=== PATIENT | female | born 1990 | race Caucasian/White ===

== ENCOUNTER 2018-05-08 19:52 | Emergency (ER) | payer OTHER ==
[2018-05-08 21:17] LABS: Absolute Lymphocytes (CBC) 2.1 K/uL (0.7-4.9); Absolute Monocytes 0.5 K/uL (0.1-1.3); Absolute Neutrophil 4.3 K/uL (1.8-8.0); Basophils % 0.6 % (0-1.3); Eosinophils % 1.9 % (0-4.4); Hematocrit 38.4 % (36.0-45.0); Lymphocytes % 29.6 % (15.3-44.8); MCH 30.3 pg (27.0-35.0); MCV 89.8 fL (80-100); MPV 8.8 fL (7.6-11.3); Monocytes % 7.4 % (3.3-12.3); RBC Red Blood Cell Count 4.27 M/uL (3.86-4.86)
[2018-05-08 21:36] LABS: Potassium 3.1 mmol/L (3.5-5.1)
--- NOTE | 2018-05-08 21:40 | RAD REPORT ---
EXAM DESCRIPTION: US - TRANSVAG OB - 05/08/2018 9:17 pm CLINICAL HISTORY: with vaginal bleeding COMPARISON: None FINDINGS: The uterus measures 7 x 5 x 6 centimeters. A fluid collection is present within the endome trium measuring 1.2 x 0.3 x 2.7 centimeters. A pole is not seen. Debris is present. The ovaries are normal in size and echotexture. No significant free fluid is noted. IMPRESSION: 1.2 x 0.3 x 2.7 centimeter fluid collection within the endometrium may represent an irre gularly shaped gestational sac associated with an early IUP. The estimated gestational age 6 weeks 0 days BENOIT 01/01/2019. Other considerations include incomplete and even a pseudo gestational sac associated with an ectopic . This all should be correlated clinically and with serial beta HCG levels. A followup endovaginal sono gram in 1 week would be helpful
[2018-05-08 21:46] LABS: Urine Blood 1+ (NEG); Urine Glucose NEGATIVE (NEG); Urine Protein NEGATIVE (NEG); Urine Specific Gravity 1.005 (1.005-1.030)
--- NOTE | 2018-05-08 23:30 | ER ---
Nurse's Notes [facility] Name: Alexandra Rodriguez Age: 27 yrs Sex: Female : 1990 Arrival Date: 05/08/2018 Time: 19:55 Bed 27 Private MD: Diagnosis: Threatened Presentation: 05/08 20:10 Presenting complaint: Patient states: she is 6 weeks and started bleeding with bb abdominal pain today. Transition of care: patient was not received from another setting of care. Onset of symptoms was May 08, 2018. Risk Assessment: Do you want to hurt yourself or someone else? Patient reports no desire to harm self or others. Initial Sepsis Screen: Does the patient meet any 2 criteria? No. Patient's initial sepsis screen is negative. Does the patient have a suspected source of infection? No. Patient's initial sepsis screen is negative. Care prior to arrival: None. 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 - Social history:: Smoking status: Patient/guardian denies using tobacco, Patient/guardian denies using alcohol, street drugs. - Ebola Screening: : No symptoms or risks identified at this time. Screenin:41 Abuse screen: Denies threats or abuse. Nutritional screening: No deficits noted. tl3 Tuberculosis screening: No symptoms or risk factors identified. Fall Risk None identified. Assessment: 21:41 Obstetrical Assessment: Patient reports abdominal cramping, 6 weeks . General: tl3 Appears in no apparent distress. comfortable, slender, well groomed, well developed, well nourished, Behavior is calm, cooperative, appropriate for age. Pain: Complains of pain in left lower quadrant and right lower quadrant. Neuro: Level of Consciousness is awake, alert, obeys commands, Oriented to person, place, time, situation, Appropriate for age. Cardiovascular: Patient's skin is warm and dry. Respiratory: Airway is patent Respiratory effort is even, unlabored, Respiratory pattern is regular, symmetrical. GI: No signs and/or symptoms were reported involving the gastrointestinal system. : Reports vaginal bleeding that is moderate flow, since today. EENT: No signs and/or symptoms were reported regarding the EENT system. Derm: No signs and/or symptoms reported regarding the dermatologic system. 22:54 Reassessment: Patient appears in no apparent distress at this time. No changes from tl3 previously documented assessment. Patient and/or family updated on plan of care and expected duration. Pain level reassessed. Patient is alert, oriented x 3, equal unlabored respirations, skin warm/dry/pink. 23:30 Reassessment: Patient appears in no apparent distress at this time. No changes from tl3 previously documented assessment. Patient and/or family updated on plan of care and expected duration. Pain level reassessed. Patient is alert, oriented x 3, equal unlabored respirations, skin warm/dry/pink. Vital Signs: 20:12 BP 134 / 82; Pulse 93; Resp 18 S; Temp 98.6(O); Pulse Ox 100% on R/A; Weight 57.61 kg bb (R); Height 5 ft. 2 in. (157.48 cm) (R); Pain 6/10; 22:54 BP 137 / 81; Pulse 75; Resp 18; Pulse Ox 100% on R/A; tl3 23:30 BP 114 / 76; Pulse 70; Resp 16; Pulse Ox 99% ; tl3 20:12 Body Mass Index 23.23 (57.61 kg, 157.48 cm) bb Vitals: 05/09 00:32 Heart Tones too early in . tl3 ED Course: 05/08 19:55 Patient arrived in ED. am2 20:11 Triage completed. bb 20:12 Arm band placed on right wrist. Patient placed in an exam room, on a stretcher, on bb pulse oximetry. Family accompanied patient. 20:15 Norah Ramirez, NARCISA is Primary Nurse. tl3 20:20 Joselito Luu MD is Attending Physician. gs 21:17 TRANSVAG OB In Process Unspecified. EDMS 21:36 Urine Dipstick--Ancillary (enter results) Sent. tl3 21:41 Patient has correct armband on for positive identification. Bed in low position. Call tl3 light in reach. Side rails up X 1. Adult w/ patient. 21:41 No provider procedures requiring assistance completed. Inserted saline lock: 20 gauge tl3 in right antecubital area, using aseptic technique. Blood collected. 23:29 Liza Saucedo MD is Referral Physician. tw4 23:30 IV discontinued, intact, bleeding controlled, No redness/swelling at site. Pressure tl3 dressing applied. Administered Medications: 22:53 Drug: Rho D Immune Globulin 300 mcg Route: IM; Site: left gluteus; tl3 05/09 00:31 Follow up: Response: No adverse reaction tl3 Point of Care Testing: Urine : 00:33 hCG Reading: Negative; Control Reading: Negative; tl3 00:32 negative, specific gravity was below 1.005 tl3 Outcome: 05/08 23:29 Discharge ordered by . tw4 23:30 Discharged to home ambulatory. tl3 23:30 Condition: good 23:30 Discharge instructions given to patient, family, Instructed on discharge instructions, follow up and referral plans. medication usage, Demonstrated understanding of instructions, follow-up care, medications, Prescriptions given X 1. 07 00:24 Patient left the ED. tl3 Signatures: Dispatcher [employer] EDMS Odalys Cleveland, RN RN Daly Owens am2 Joselito Luu MD MD gs Wadley, Terrence, MD MD tw4 Norah Ramirez, NARCISA RN tl3
--- NOTE | 2018-05-08 23:30 | EDPHYS ---
Physician Documentation [facility] Name: Alexandra Rodriguez Age: 27 yrs Sex: Female : 1990 Arrival Date: 05/08/2018 Time: 19:55 Bed 27 Private MD: ED Physician Joselito Luu HPI: 05/08 21:06 This 27 yrs old Female presents to ER via Ambulatory with complaints of gs Vaginal Bleeding, + Preg <12wks, Abdominal Pain. 21:06 The patient presents to the emergency department with vaginal bleeding, that is light. gs The estimated gestational age is 6 weeks. course: care: at a clinic, Leakage of Fluid: none appreciated, Ultrasound: the patient has not had an ultrasound. Previous pregnancies: in previous pregnancies patient has had. Associated signs and symptoms: Pertinent negatives: chest pain, dysuria, fever, vaginal discharge. The patient has been recently seen by a physician: with similar presenting complaints. 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 - Social history:: Smoking status: Patient/guardian denies using tobacco, Patient/guardian denies using alcohol, street drugs. - Ebola Screening: : No symptoms or risks identified at this time. ROS: 21:06 All other systems are negative. gs Exam: 21:06 Head/Face: Normocephalic, atraumatic. Eyes: Pupils equal round and reactive to light, gs extra-ocular motions intact. Lids and lashes normal. Conjunctiva and sclera are non-icteric and not injected. Cornea within normal limits. Periorbital areas with no swelling, redness, or edema. ENT: Nares patent. No nasal discharge, no septal abnormalities noted. Tympanic membranes are normal and external auditory canals are clear. Oropharynx with no redness, swelling, or masses, exudates, or evidence of obstruction, uvula midline. Mucous membranes moist. Neck: Trachea midline, no thyromegaly or masses palpated, and no cervical lymphadenopathy. Supple, full range of motion without nuchal rigidity, or vertebral point tenderness. No Meningismus. Chest/axilla: Normal chest wall appearance and motion. Nontender with no deformity. No lesions are appreciated. Cardiovascular: Regular rate and rhythm with a normal S1 and S2. No gallops, murmurs, or rubs. Normal PMI, no JVD. No pulse deficits. Respiratory: Lungs have equal breath sounds bilaterally, clear to auscultation and percussion. No rales, rhonchi or wheezes noted. No increased work of breathing, no retractions or nasal flaring. Back: No spinal tenderness. No costovertebral tenderness. Full range of motion. Skin: Warm, dry with normal turgor. Normal color with no rashes, no lesions, and no evidence of cellulitis. MS/ Extremity: Pulses equal, no cyanosis. Neurovascular intact. Full, normal range of motion. Neuro: Awake and alert, GCS 15, oriented to person, place, time, and situation. Cranial nerves II-XII grossly intact. Motor strength 5/5 in all extremities. Sensory grossly intact. Cerebellar exam normal. Normal gait. 21:06 Constitutional: The patient appears alert, awake. 21:06 Abdomen/GI: Palpation: mild abdominal tenderness, in the right lower quadrant and left lower quadrant, rebound tenderness, is not appreciated. Vital Signs: 20:12 BP 134 / 82; Pulse 93; Resp 18 S; Temp 98.6(O); Pulse Ox 100% on R/A; Weight 57.61 kg bb (R); Height 5 ft. 2 in. (157.48 cm) (R); Pain 6/10; 22:54 BP 137 / 81; Pulse 75; Resp 18; Pulse Ox 100% on R/A; tl3 23:30 BP 114 / 76; Pulse 70; Resp 16; Pulse Ox 99% ; tl3 20:12 Body Mass Index 23.23 (57.61 kg, 157.48 cm) bb MDM: 20:26 Patient medically screened. 21:06 Differential diagnosis: ectopic . Data reviewed: vital signs, nurses notes. ED gs course: pt is rh negative. 05/08 20:34 Order name: Quantitative Hcg; Complete Time: 23:28 05/08 20:34 Order name: Abo/rh Typing 05/08 20:34 Order name: Basic Metabolic Panel; Complete Time: 23:28 05/08 20:34 Order name: CBC with Diff; Complete Time: 23:28 05/08 21:24 Order name: Rh Typing [facility] 05/08 21:24 Order name: Antibody Screen [facility] 05/08 21:24 Order name: Fetalscreen [facility] 05/08 21:24 Order name: Cord Rh type [facility] 05/08 21:24 Order name: Rhogam [facility] 05/08 20:34 Order name: IV Saline Lock; Complete Time: 20:50 05/08 20:34 Order name: Labs collected and sent; Complete Time: 20:50 05/08 20:34 Order name: NPO; Complete Time: 20:50 05/08 20:34 Order name: Urine Dipstick-Ancillary (obtain specimen); Complete Time: 21:36 05/08 20:48 Order name: TRANSVAG OB; Complete Time: 23:28 [facility] 05/08 21:27 Order name: Urine Dipstick--Ancillary (enter results) 05/08 21:27 Order name: Urine Dipstick-Ancillary; Complete Time: 23:28 EDMS Administered Medications: 22:53 Drug: Rho D Immune Globulin 300 mcg Route: IM; Site: left gluteus; tl3 05/09 00:31 Follow up: Response: No adverse reaction tl3 Point of Care Testing: Urine : 00:33 hCG Reading: Negative; Control Reading: Negative; tl3 00:32 negative, specific gravity was below 1.005 tl3 Disposition: 05/08/18 23:29 Discharged to Home. Impression: Threatened . - Condition is Stable. - Discharge Instructions: Threatened Miscarriage, Threatened Miscarriage, Cute-iv-Tonr. - Prescriptions for Vitamin 27- 0.8 mg Oral Tablet - take 1 tablet by ORAL route once daily; 60 tablet. - Medication Reconciliation Form, Thank You Letter, Antibiotic Education, Prescription Opioid Use form. - Follow up: Emergency Department; When: As needed; Reason: Continuance of care, Re-evaluation by your physician. Follow up: Liza Saucedo MD; When: As needed; Reason: Recheck today's complaints, Re-evaluation by your physician. - Problem is new. - Symptoms have improved. Signatures: Dispatcher [facility] Odalys Cleveland RN RN bb Joselito Luu MD MD gs Wadley, Terrence, MD MD tw4 Norah Ramirez, RN RN tl3 Corrections: (The following items were deleted from the chart) 05/08 20:48 20:38 Pelvis Complete+US.RAD.BRZ ordered. EDAL EDAL 21:12 RHOGAM+BB.LAB.BRZ ordered. EDAL EDAL 21:12 Rh Typing ordered. EDAL EDAL 21:12 Antibody Screen ordered. EDAL EDAL 21:12 Fetalscreen ordered. EDAL EDAL 21:12 Cord Rh type ordered. [facility] EDAL 05/09 00:24 05/08 23:29 05/08/2018 23:29 Discharged to Home. Impression: Threatened . tl3 Condition is Stable. Forms are Medication Reconciliation Form, Thank You Letter, Antibiotic Education, Prescription Opioid Use. Follow up: Emergency Department; When: As needed; Reason: Continuance of care, Re-evaluation by your physician. Follow up: Liza Saucedo; When: As needed; Reason: Recheck today's complaints, Re-evaluation by your physician. Problem is new. Symptoms have improved. tw4
[2018-05-09 00:58] VITALS: TEMP 98.6; O2SAT 100
[2018-05-09 00:59] VITALS: BP 137/81
== END 2018-05-09 00:24 | disposition home or self-care (01) ==
LOC: ER 19:52
DX: O20.0 Threatened abortion (principal); Z3A.01 Less than 8 weeks gestation of pregnancy; Z88.6 Allergy status to analgesic agent
CPT/HCPCS: 36415; 76813; 80048; 81003; 84702; 85025; 86850; 86900; 86901; 96372; 99284; J2790